=== PATIENT | male | born 1995 | race Caucasian/White ===

== ENCOUNTER 2024-02-06 05:00 | Emergency (ER) | payer BC ==
[2024-02-06] MEDS ORDERED: NA CHLORIDE 0.9% 100 ML ONE (05:13)
[2024-02-06] MEDS ORDERED: METHOCARBAMOL 1,000 MG/10 ML VIAL ONE (05:13)
[2024-02-06] MEDS ORDERED: KETOROLAC 30 MG/ML INJ ONE (05:13)
[2024-02-06 05:42] LABS: Absolute Basophils 0.1 K/uL (0-0.5); Absolute Eosinophils 0.5 K/uL (0-0.5); Absolute Lymphocytes (CBC) 3.2 K/uL (0.7-4.9); Absolute Monocytes 0.7 K/uL (0.1-1.3); Absolute Neutrophil 3.5 K/uL (1.8-8.0); Basophils % 1.3 % (0-1.3); Hematocrit 46.2 % (39.6-49.0); Hemoglobin 14.7 g/dL (13.6-17.9); Lymphocytes % 40.2 % (15.3-44.8); MCH 27.3 pg (27.0-35.0); MCHC 31.9 g/dL (32.0-36.0); MCV 85.5 fL (80-100); MPV 9.6 fL (7.6-11.3); Monocytes % 8.3 % (3.3-12.3); Neutrophils % 44.2 % (41.7-73.7); Platelets 304 thou/uL (152-406); Red Cell Distribution Width 14.1 % (12.1-15.2)
[2024-02-06 05:55] LABS: Albumin 3.6 g/dL (3.4-5.0); Albumin/Globulin Ratio 0.9 (1.1-1.8); Anion Gap 6.3 mEq/L (5.0-15.0); Bilirubin Total 0.4 mg/dL (0.2-1.0); Globulin 3.8 g/dL (2.3-3.5); Potassium 4.3 mEq/L (3.5-5.1); Protein, Total 7.4 g/dL (6.4-8.2)
--- NOTE | 2024-02-06 05:58 | RAD REPORT ---
EXAM DESCRIPTION: Abdomen Pelvis Wo Contrast RadLex: CT ABDOMEN PELVIS WITHOUT IV CONTRAST CLINICAL HISTORY: 28 years Male; back pain; NO CONTRAST Bed Name: 16 TECHNIQUE: CT of the abdomen and pelvis without contrast. All CT scans at this facility use dose modulation, iterative reconstruction, and/or weight based dosi ng when appropriate to reduce radiation dose to as low as reasonably achievable. COMPARISON: None. FINDINGS: Lower thorax: Lung bases are clear Abdomen: Stomach: Within normal limits Liver: Nonspecific calcification along the anterior right hepatic lobe. No intrahepatic ductal disten tion. Gallbladder: Nondistended Pancreas: Within normal limits Spleen: Within normal limits Right kidney: No hydronephrosis. No renal or ureteral calculi. Left kidney: No hydronephrosis. No renal or ureteral calculi. Adrenal glands: Within normal limits Vascular structures: Within normal limits (although limited evaluation on noncontrast exam). Lymph nodes: No lymphadenopathy by size criteria Pelvis: Small bowel: No significant distention. Appendix: Within normal limits Colon: No distention or acute pericolonic edema. Moderate stool burden. Peritoneum: No free intraperitoneal fluid or air. Bones: No acute bone findings. Bladder: Unremarkable. Reproductive organs: No acute findings. Note that evaluation of the bowel and solid organs is somewhat limited due to lack of intravenous and oral contrast. IMPRESSION: 1. No acute abdominopelvic findings. 2. Moderate stool burden. Electronically signed by: Lisbeth Weinstein MD 02/06/2024 05:55 AM [facility] Z9 Due to temporary technical issues with the PACS/Samas[employer] reporting system, reports are being nishi d by the in-house radiologist without review as a courtesy to ensure prompt reporting the interpreting radiologist is fully responsible for the content of the report. Transcribed Date/Time: 02/06/2024 5:58 AM
[2024-02-06 05:59] LABS: Specific Gravity 1.025 (1.005-1.030); Sqamous Epithelial <5 /HPF (None Seen); Urine Bacteria None Seen /HPF (<20); Urine Bilirubin NEGATIVE (Negative); Urine Blood Negative (Negative); Urine Clarity Clear (Clear); Urine Color Light-Yellow (Yellow); Urine Culture Reflex Order NOT NEEDED; Urine Glucose NEGATIVE (Negative); Urine Ketones NEGATIVE (Negative); Urine Micro Reflex YN NO BILL MICROSCOPIC; Urine Mucus Slight /HPF (None Seen); Urine Nitrite NEGATIVE (Negative); Urine Protein TRACE (Negative); Urine RBC None Seen /HPF (None Seen); Urine Urobilinogen Normal (Normal); Urine WBC <5 /HPF (<5); Urine pH 5.5 (5.0-7.0)
--- NOTE | 2024-02-06 06:12 | ER ---
Nurse's Notes [facility] Name: Francisco Combs Age: 28 yrs Sex: Male : 1995 Arrival Date: 02/06/2024 Time: 05:00 Bed 16 Private MD: Diagnosis: Low back pain Presentation: 02/05 05:04 Chief complaint: Patient states: I have this severe back pain right in the middle of my bm8 back that woke from my sleep an hour ago. Coronavirus screen: At this time, the client does not indicate any symptoms associated with coronavirus-19. Ebola Screen: Patient negative for fever greater than or equal to 101.5 degrees Fahrenheit, and additional compatible Ebola Virus Disease symptoms Patient denies exposure to infectious person. Patient denies travel to an Ebola-affected area in the 21 days before illness onset. No symptoms or risks identified at this time. Initial Sepsis Screen: Does the patient meet any 2 criteria? No. Patient's initial sepsis screen is negative. Does the patient have a suspected source of infection? No. Patient's initial sepsis screen is negative. Risk Assessment: Do you want to hurt yourself or someone else? Patient reports no desire to harm self or others. Onset of symptoms was February 06, 2024 at 04:00. 05:04 Method Of Arrival: EMS: [facility] bm8 05:04 Acuity: FAY 3 bm8 Triage Assessment: 05:07 General: Appears in no apparent distress. uncomfortable, Behavior is calm, cooperative, bm8 appropriate for age. Pain: Complains of pain in lumbar area, left mid back and right mid back Pain does not radiate. Pain currently is 10 out of 10 on a pain scale. Quality of pain is described as aching, crampy. EENT: No deficits noted. No signs and/or symptoms were reported regarding the EENT system. Neuro: No deficits noted. Level of Consciousness is awake, alert, obeys commands, Oriented to person, place, time, situation, Appropriate for age. Cardiovascular: Heart tones S1 S2 present Capillary refill < 3 seconds in bilateral fingers Patient's skin is warm and dry. Respiratory: Airway is patent Respiratory effort is even, unlabored, Respiratory pattern is regular, symmetrical, Breath sounds are clear bilaterally. GI: No signs and/or symptoms were reported involving the gastrointestinal system. : No signs and/or symptoms were reported regarding the genitourinary system. Derm: No signs and/or symptoms reported regarding the dermatologic system. Musculoskeletal: Circulation, motion, and sensation intact. Capillary refill < 3 seconds, in bilateral fingers. Range of motion: intact in all extremities, Reports pain in back. Historical: - Allergies: 05:07 No Known Allergies; bm8 - Home Meds: 05:07 None [Active]; bm8 - PMHx: 05:07 None; bm8 - PSHx: 05:07 None; bm8 - Immunization history:: Adult Immunizations up to date. - Infectious Disease History:: Denies. - Social history:: Smoking status: Patient reports use of chewing tobacco. Patient/guardian denies using alcohol, street drugs. - Family history:: not pertinent. Screenin:23 [facility] ED Fall Risk Assessment (Adult) History of falling in the last 3 months, ay including since admission No falls in past 3 months (0 pts) Confusion or Disorientation No (0 pts) Intoxicated or Sedated No (0 pts) Impaired Gait No (0 pts) Mobility Assist Device Used No (0 pt) Altered Elimination No (0 pt) Score/Fall Risk Level 0 - 2 = Low Risk Oriented to surroundings, Maintained a safe environment, Educated pt \T\ family on fall prevention, incl call for assistance when getting out of bed, Assessed \T\ reinforced patient's understanding of fall precautions. Abuse screen: Denies threats or abuse. Nutritional screening: No deficits noted. Tuberculosis screening: No symptoms or risk factors identified. Assessment: 05:23 General: Appears distressed, uncomfortable, Behavior is calm, cooperative. Pain: ay Complains of pain in lumbar area. Neuro: Level of Consciousness is awake, alert, obeys commands, Oriented to person, place, time, situation. Cardiovascular: Denies chest pain. Respiratory: No deficits noted. Reports. GI: Bowel sounds present X 4 quads. : No deficits noted. EENT: No deficits noted. Derm: No deficits noted. Musculoskeletal: No deficits noted. 06:10 Pain: Pain currently is 10 out of 10 on a pain scale. ay 06:26 Reassessment: Patient appears in no apparent distress at this time. Patient and/or bm8 family updated on plan of care and expected duration. Pain level reassessed. Patient is alert, oriented x 3, equal unlabored respirations, skin warm/dry/pink. Patient states feeling better. Patient states symptoms have improved. Vital Signs: 05:04 BP 147 / 104; Pulse 65; Resp 16; Temp 97.5; Pulse Ox 100% ; Weight 74.84 kg; Height 5 bm8 ft. 11 in. ; Pain 10/10; 05:43 BP 130 / 99; Pulse 61; Resp 18; Temp 97.7; Pulse Ox 100% on R/A; ay 06:23 BP 135 / 105; Pulse 68; Resp 17; Temp 97.7; Pulse Ox 100% ; Pain 7/10; bm8 05:04 Body Mass Index 23.01 (74.84 kg, 180.34 cm) bm8 05:04 Pain Scale: Adult bm8 06:23 Pain Scale: Adult bm8 [place] Coma Score: 05:23 Eye Response: spontaneous(4). Motor Response: obeys commands(6). Verbal Response: ay oriented(5). Total: 15. 06:23 Eye Response: spontaneous(4). Motor Response: obeys commands(6). Verbal Response: bm8 oriented(5). Total: 15. ED Course: 05:01 Patient arrived in ED. gm2 05:01 Everton Ruiz MD is Attending Physician. rt 05:03 Errol Medrano, RN is Primary Nurse. bm8 05:07 Triage completed. bm8 05:07 Arm band placed on left wrist. bm8 05:23 Patient has correct armband on for positive identification. Bed in low position. Call ay light in reach. Side rails up X 1. Provided Education on: Procedure Consent. 05:23 Inserted saline lock: 20 gauge in left antecubital area, using aseptic technique. ay 05:32 CT Abd/Pelvis - Without Contrast In Process Unspecified. EDMS 06:26 Provided Education on: post er care. bm8 06:26 No provider procedures requiring assistance completed. IV discontinued, intact, bm8 bleeding controlled, No redness/swelling at site. Pressure dressing applied. Administered Medications: 05:17 Drug: Ketorolac IVP 30 mg IVP once Route: IVP; Site: left antecubital; bm8 05:55 Follow up: Response: No adverse reaction ay 06:26 Follow up: Response: No adverse reaction bm8 05:17 Drug: Methocarbamol IVPB 1 grams IVPB once over 1 hrs; (mix in NS 100 mL) Route: IVPB; bm8 Infused Over: 1 hrs; Site: left antecubital; 05:54 Follow up: Response: No adverse reaction ay 06:26 Follow up: Response: No adverse reaction; IV Status: Completed infusion; IV Intake: bm8 100ml Medication: 05:23 VIS not applicable for this client. ay Intake: 06:26 IV: 100ml; Total: 100ml. bm8 Outcome: 06:12 Discharge ordered by . rt 06:26 Discharged to home ambulatory, bm8 06:26 Condition: stable 06:26 Discharge instructions given to patient, Instructed on discharge instructions, follow up and referral plans. no drinking with medication, no driving heavy equipment, medication usage, safety practices, Demonstrated understanding of instructions, follow-up care, medications, Prescriptions given X 2, 06:27 Patient left the ED. bm8 Signatures: Dispatcher [employer] EDMS Everton Ruiz MD MD rt Ofelia Patel 2 Errol Medrano, RN RN bm8 Trevor Florence, RN RN ay
--- NOTE | 2024-02-06 06:12 | EDPHYS ---
Physician Documentation [facility] Name: Francisco Combs Age: 28 yrs Sex: Male : 1995 Arrival Date: 02/06/2024 Time: 05:00 Bed 16 Private MD: ED Physician Everton Ruiz HPI: 02/05 05:08 This 28 yrs old Male presents to ER via EMS with complaints of Back Pain. rt 05:08 Patient presents to the ED with back pain starting about 3. Is in the mid to right of rt center of the upper lumbar region. Denies discrete injury. Denies other complaints at this time, symptoms are moderate severity, no other aggravating elevating factors.. Historical: - Allergies: 05:07 No Known Allergies; bm8 - Home Meds: 05:07 None [Active]; bm8 - PMHx: 05:07 None; bm8 - PSHx: 05:07 None; bm8 - Immunization history:: Adult Immunizations up to date. - Infectious Disease History:: Denies. - Social history:: Smoking status: Patient reports use of chewing tobacco. Patient/guardian denies using alcohol, street drugs. - Family history:: not pertinent. ROS: 05:08 Constitutional: Negative for fever, chills, and weight loss, Cardiovascular: Negative rt for chest pain, palpitations, and edema, Respiratory: Negative for shortness of breath, cough, wheezing, and pleuritic chest pain, MS/Extremity: Negative for injury and deformity, Skin: Negative for injury, rash, and discoloration, Neuro: Negative for headache, weakness, numbness, tingling, and seizure, 05:08 Back: Positive for pain at rest, pain with movement, Negative for injury or acute deformity, Exam: 05:08 Constitutional: This is a well developed, well nourished patient who is awake, alert, rt and in no acute distress. Head/Face: Normocephalic, atraumatic. Chest/axilla: Normal chest wall appearance and motion. Nontender with no deformity. No lesions are appreciated. Cardiovascular: Regular rate and rhythm with a normal S1 and S2. No gallops, murmurs, or rubs. Normal PMI, no JVD. No pulse deficits. Respiratory: Lungs have equal breath sounds bilaterally, clear to auscultation and percussion. No rales, rhonchi or wheezes noted. No increased work of breathing, no retractions or nasal flaring. Abdomen/GI: Soft, non-tender, with normal bowel sounds. No distension or tympany. No guarding or rebound. No evidence of tenderness throughout. MS/ Extremity: Pulses equal, no cyanosis. Neurovascular intact. Full, normal range of motion. Neuro: Awake and alert, GCS 15, oriented to person, place, time, and situation. Cranial nerves II-XII grossly intact. Motor strength 5/5 in all extremities. Sensory grossly intact. Cerebellar exam normal. Normal gait. Vital Signs: 05:04 BP 147 / 104; Pulse 65; Resp 16; Temp 97.5; Pulse Ox 100% ; Weight 74.84 kg; Height 5 bm8 ft. 11 in. ; Pain 10/10; 05:43 BP 130 / 99; Pulse 61; Resp 18; Temp 97.7; Pulse Ox 100% on R/A; ay 06:23 BP 135 / 105; Pulse 68; Resp 17; Temp 97.7; Pulse Ox 100% ; Pain 7/10; bm8 05:04 Body Mass Index 23.01 (74.84 kg, 180.34 cm) bm8 05:04 Pain Scale: Adult bm8 06:23 Pain Scale: Adult bm8 [place] Coma Score: 05:23 Eye Response: spontaneous(4). Motor Response: obeys commands(6). Verbal Response: ay oriented(5). Total: 15. 06:23 Eye Response: spontaneous(4). Motor Response: obeys commands(6). Verbal Response: bm8 oriented(5). Total: 15. MDM: 05:02 Medical Screening Exam initiated rt 06:17 Differential diagnosis: Musculoskeletal pain, kidney stone, pyelonephritis, muscle rt spasm. Data reviewed: vital signs, nurses notes, lab test result(s), radiologic studies. I considered the following discharge prescriptions or medication management in the emergency department Medications were administered in the Emergency Department. See MAR. Independent interpretation of the following test(s) in the Emergency Department CT Scan: My interpretation is No ureteral stone seen on my interpretation of CT scan images. Counseling: I had a detailed discussion with the patient and/or guardian regarding the historical points, exam findings, and any diagnostic results supporting the discharge/admit diagnosis, lab results, radiology results, the need for outpatient follow up. Response to treatment: the patient's symptoms have markedly improved after treatment. 02/05 05:07 Order name: UAM; Complete Time: 06:01 rt 02/05 05:07 Order name: CBC with Diff; Complete Time: 06:01 rt 02/05 05:07 Order name: CMP; Complete Time: 06:01 rt 02/05 05:07 Order name: CT Abd/Pelvis - Without Contrast rt Administered Medications: 05:17 Drug: Ketorolac IVP 30 mg IVP once Route: IVP; Site: left antecubital; bm8 05:55 Follow up: Response: No adverse reaction ay 06:26 Follow up: Response: No adverse reaction bm8 05:17 Drug: Methocarbamol IVPB 1 grams IVPB once over 1 hrs; (mix in NS 100 mL) Route: IVPB; bm8 Infused Over: 1 hrs; Site: left antecubital; 05:54 Follow up: Response: No adverse reaction ay 06:26 Follow up: Response: No adverse reaction; IV Status: Completed infusion; IV Intake: bm8 100ml Disposition Summary: 02/06/24 06:12 Discharge Ordered Notes: Location: Home rt Problem: new rt Symptoms: have improved rt Condition: Stable rt Diagnosis - Low back pain rt Followup: rt - With: Private Physician - When: 2 - 3 days - Reason: Discharge Instructions: - Discharge Summary Sheet rt - Acute Back Pain, Adult rt Forms: - Medication Reconciliation Form rt - Antibiotic Education rt - Prescription Opioid Use rt - Patient Portal Instructions rt - Leadership Thank You Letter rt Prescriptions: - Cyclobenzaprine 10 mg Oral tablet - take 1 tablet ORAL route every 8 hours As needed; 15 tablet; Refills: 0, rt Product Selection Permitted - Medrol (Paolo) 4 mg Oral Tablets, Dose Pack - take 1 tablet ORAL route as directed - follow package instructions; 1 packet; rt Refills: 0, Product Selection Permitted Signatures: Dispatcher [employer] Everton Starks MD MD rt Errol Medrano, RN RN bm8 Trevor Florence RN ay Corrections: (The following items were deleted from the chart) 05:08 05:08 Urinalysis W/Microscopic+U.LAB.BRZ ordered. EDMS EDMS 05:08 05:08 CBC+H.LAB.BRZ ordered. EDMS EDMS 05:08 05:08 COMPREHENSIVE METABOLIC PANEL+C.LAB.BRZ ordered. EDMS EDMS 05:08 05:08 Abdomen Pelvis Wo Con+CT.RAD.BRZ ordered. EDMS EDMS
[2024-02-06 10:57] VITALS: O2SAT 100
[2024-02-06 10:59] VITALS: TEMP 97.7
[2024-02-06 11:00] VITALS: BP 135/105
== END 2024-02-06 06:27 | disposition home or self-care (01) ==
LOC: ER 05:00
DX: M54.50 Low back pain, unspecified (principal); F17.220 Nicotine dependence, chewing tobacco, uncomplicated
CPT/HCPCS: 96365; 85025; 81001; 36415; 80053; 74176; 96375; 99284; J2800